=== PATIENT | female | born 1995 | race Caucasian/White ===

== ENCOUNTER 2023-08-16 11:42 | Emergency (ER) | payer BC, OTHER ==
[~2023-08-16] VITALS: Ht 157.5 cm; Wt 60.3 kg
[2023-08-16] MEDS ORDERED: Ondansetron HCl 2 MG / ML 2ML Vial IV ONE ×2 (11:55→15:35)
[2023-08-16] MEDS ORDERED: NS 1,000 ML IV SCH ×2 (12:05→15:50)
[2023-08-16] MEDS ORDERED: SERT25 PO (12:12)
[2023-08-16] MEDS ORDERED: ONE-A-DAY PREN1 EAC2 PO (12:13)
[2023-08-16 12:14] LABS: BASOPHILS ABSOLUTE AUTO 0.02 K/mm3 (0.00-0.23); BASOPHILS PERCENT AUTO 0 % (0-2); EOSINOPHILS PERCENT AUTO 0 % (0-6); Hematocrit 37.8 % (33.0-51.0); Hemoglobin 12.9 g/dL (11.5-16.0); IMMATURE GRAN ABSOLUTE AUTO 0.07 K/mm3 (0.00-0.10); IMMATURE GRAN PERCENT AUTO 1 % (0-1); LYMPHOCYTES ABSOLUTE AUTO 1.42 K/mm3 (0.84-5.20); LYMPHOCYTES PERCENT AUTO 10 % (21-46); MONOCYTES ABSOLUTE AUTO 0.33 K/mm3 (0.16-1.47); MONOCYTES PERCENT AUTO 2 % (4-13); Mean Corpuscular HGB 29.5 pg (26.0-34.0); Mean Corpuscular HGB Conc 34.1 g/dL (31.5-36.5); Mean Corpuscular Volume 86 fL (80-100); Mean Platelet Volume 12.1 fL (9.1-12.4); NEUTROPHILS PERCENT AUTO 87 % (41-73); Platelet Count 200 K/mm3 (150-400); RDW Coefficient Variation 12.9 % (11.7-14.2); RDW Standard Deviation 40.7 fL (35.1-46.3); Red Blood Cell Count 4.38 M/mm3 (3.80-5.20); White Blood Cell Count 13.94 K/mm3 (4.00-11.30)
[2023-08-16 12:35] LABS: Albumin, Blood 3.7 g/dL (3.4-5.0); Albumin/Globulin Ratio 0.9 (0.8-1.8); Bilirubin, Total 0.2 mg/dL (0.1-1.0); Bun/Creatinine Ratio 15.5 (12.0-20.0); Calcium, Blood 9.2 mg/dL (8.5-10.1); Creatinine, Blood 0.52 mg/dL (0.40-1.00); Globulin, Blood 4.1 g/dL (2.2-4.0); Potassium, Blood 3.4 mmol/L (3.5-5.5); Total Protein, Blood 7.8 g/dL (6.4-8.2)
[2023-08-16] MEDS ORDERED: Prochlorperazine Edisylate 10 mg Vial IV ONE (13:35)
[2023-08-16 15:04] LABS: Source, Urine Clean Catch
[2023-08-16 15:25] LABS: Bilirubin, Urine Neg (Neg); Blood, Urine 1+ (Neg); Color, Urine Yellow (P-Yellow); Glucose Qualitative, Urine Neg (Neg); Ketones, Urine 4+ (Neg); Leukocyte Esterase, Urine 1+ (Neg); Nitrite, Urine Neg (Neg); Protein, Urine 2+ (Neg); Specific Gravity, Urine 1.025 (1.003-1.022); Urobilinogen, Urine NORM (Normal)
[2023-08-16 15:37] LABS: Appearance, Urine Hazy (Clear)
[2023-08-16 15:48] LABS: Amorphous Light (0-Heavy); Bacteria Many /hpf; Mucus Light (0-Heavy); Red Blood Cells, Urine 0-2 /hpf (0-2); Squamous Epithelial Cells Few /hpf (Few); Transitional Epithelial Cells Rare /hpf (0-Rare)
[2023-08-16] MEDS ORDERED: D5W-LR 1,000 ML IV SCH (15:55)
[2023-08-16] MEDS ORDERED: ONDA4ODT MM (16:45)
[2023-08-16 17:00] VITALS: BP 120/58
== END 2023-08-16 17:15 | disposition home or self-care (01) ==
LOC: ER 11:42
PROVIDERS: Physician Assistant
DX: O21.9 Vomiting of pregnancy, unspecified (principal); O99.282 Endocrine, nutritional and metabolic diseases complicating pregnancy, second trimester; E86.0 Dehydration; E88.89 Other specified metabolic disorders; Z3A.27 27 weeks gestation of pregnancy
CPT/HCPCS: 80053; 81001; 83690; 84702; 85025; 87086; 96361; 96374; 96375; 99283-25; J0780; J2405; J7030; J7121

== ENCOUNTER → 2023-10-19 | Outpatient (CLI) | payer BC, OTHER ==
[~2023-10-19] MED LIST: ONDA4ODT MM; ONE-A-DAY PREN1 EAC2 PO; SERT25 PO
== END | disposition home or self-care (01) ==
LOC: LAB SHORT 15:27 → LAB 15:27
DX: O09.90 Supervision of high risk pregnancy, unspecified, unspecified trimester (principal)
CPT/HCPCS: 87081; 87150

== ENCOUNTER 2023-10-31 03:15 | Inpatient (IN) | payer BC, OTHER ==
[2023-10-31] VITALS (14 sets, daily range): BP systolic 106–127; BP diastolic 53–89
[~2023-10-31] VITALS: Ht 157.5 cm; Wt 63.6 kg
[2023-10-31] MEDS ORDERED: FentaNYL Citrate 50 MCG/ML 2 ML Injection IV PRN (03:55)
[2023-10-31] MEDS ORDERED: Carboprost Tromethamine 250 MCG/ML 1ML Amp IM PRN (03:55)
[2023-10-31] MEDS ORDERED: OXYTOCIN/RINGER'S LACTATE 500 ML IV PRN ×2 (03:55→07:45)
[2023-10-31] MEDS ORDERED: Methylergonovine Maleate 0.2MG / ML 1ML Amp IM PRN (03:55)
[2023-10-31] MEDS ORDERED: Tranexamic Acid 100 ML IV SCH (03:55)
[2023-10-31] MEDS ORDERED: Oxytocin 10 Unit / ML Vial IM PRN (03:55)
[2023-10-31] MEDS ORDERED: Acetaminophen 500 MG Tab PO PRN ×2 (03:55→07:50)
[2023-10-31] MEDS ORDERED: Ondansetron HCl 2 MG / ML 2ML Vial IV PRN (03:55)
[2023-10-31] MEDS ORDERED: Lactated Ringer's 1,000 ML IV PRN (03:55)
[2023-10-31] MEDS ORDERED: Misoprostol 200 MCG Tab PR PRN (03:55)
[2023-10-31] MEDS ORDERED: Misoprostol 200 MCG Tab BC PRN (03:55)
[2023-10-31] MEDS ORDERED: Calcium Carbonate 500 MG Tab Chew PO PRN (04:00)
[2023-10-31 04:25] LABS: BASOPHILS ABSOLUTE AUTO 0.05 K/mm3 (0.00-0.23); BASOPHILS PERCENT AUTO 0 % (0-2); EOSINOPHILS ABSOLUTE AUTO 0.05 K/mm3 (0.00-0.68); EOSINOPHILS PERCENT AUTO 0 % (0-6); Hematocrit 35.3 % (33.0-51.0); Hemoglobin 12.2 g/dL (11.5-16.0); IMMATURE GRAN ABSOLUTE AUTO 0.08 K/mm3 (0.00-0.10); IMMATURE GRAN PERCENT AUTO 1 % (0-1); LYMPHOCYTES ABSOLUTE AUTO 4.52 K/mm3 (0.84-5.20); LYMPHOCYTES PERCENT AUTO 28 % (21-46); MONOCYTES ABSOLUTE AUTO 1.12 K/mm3 (0.16-1.47); MONOCYTES PERCENT AUTO 7 % (4-13); Mean Corpuscular HGB 29.2 pg (26.0-34.0); Mean Corpuscular HGB Conc 34.6 g/dL (31.5-36.5); Mean Corpuscular Volume 84 fL (80-100); Mean Platelet Volume 12.9 fL (9.1-12.4); NEUTROPHILS ABSOLUTE AUTO 10.59 K/mm3 (1.96-9.15); NEUTROPHILS PERCENT AUTO 65 % (41-73); Platelet Count 201 K/mm3 (150-400); RDW Coefficient Variation 12.9 % (11.7-14.2); RDW Standard Deviation 39.5 fL (35.1-46.3); Red Blood Cell Count 4.18 M/mm3 (3.80-5.20); White Blood Cell Count 16.41 K/mm3 (4.00-11.30)
[2023-10-31] MEDS ORDERED: Measles/Mumps/Rubella Vaccine 0.5 ML Vial SC ONE (07:45)
[2023-10-31] MEDS ORDERED: Ketorolac Tromethamine 30mg Vial IV PRN (07:45)
[2023-10-31] MEDS ORDERED: Lactated Ringer's 1,000 ML IV SCH (07:45)
[2023-10-31] MEDS ORDERED: Lanolin Cream TOP PRN (07:45)
[2023-10-31] MEDS ORDERED: Witch Hazel/Glycerin PADS TOP PRN (07:50)
[2023-10-31] MEDS ORDERED: Benzocaine Topical Anesthetic Spray 60GM TOP PRN (07:50)
[2023-10-31] MEDS ORDERED: Ibuprofen 400 MG Tab PO PRN (07:50)
[2023-10-31] MEDS ORDERED: Prenatal Vit/FE Fumarate/FA 1 Tab PO SCH (09:00)
[2023-11-01 00:03] VITALS: BP 106/71
[2023-11-01 05:46] VITALS: BP 117/72
[2023-11-01 08:44] VITALS: BP 119/73
[2023-11-01 12:13] VITALS: BP 118/74
--- NOTE | 2023-11-01 13:56 | NUR ---
@ 1045 PT RECIVED A POST DEPRESSION SCREENING OF 12. I CONFIRMED THAT HER ANSWERS WERE RELATED TO THE PAST 7 DAYS. SHE SAID THAT THEY WERE AND WAS RECEPTIVE TO HAVING A SCOCIAL WORKER COME AND TALK WITH HER. MARKETING ANALYST CALLED. @1115 labor economics teacher SAW THE PT. SHE STATED THAT THE PT HAD A GOOD SUPPORT SYSTEM, WAS IN THERAPY, AND WAS WELL EDUCATED ON RESOURCES AVALIBLE. SW OK'D PT FOR DISCHARGE
== END 2023-11-01 13:05 | disposition home or self-care (01) | DRG 806 ==
LOC: OBS 03:15 → BC 03:17 → OBS 03:55 → BC 03:56
PROVIDERS: ADMIT Family Medicine
PROC: 10E0XZZ Delivery of Products of Conception, External Approach (ICD-10-PCS; principal; 2023-10-31)
DX: O99.344 Other mental disorders complicating childbirth (principal); O99.324 Drug use complicating childbirth; Z37.0 Single live birth; F41.8 Other specified anxiety disorders; Z3A.37 37 weeks gestation of pregnancy; F12.90 Cannabis use, unspecified, uncomplicated; O71.82 Other specified trauma to perineum and vulva
CPT/HCPCS: 36415; 59025; 81003; 85025; 86850; 86900; 86901; 99214; A9270; J1885; J2405; J3010